=== PATIENT | female | born 1985 | race Two or more races ===

== ENCOUNTER 2020-06-05 16:16 | Inpatient (IN) | payer MEDICAID, OTHER ==
[~2020-06-05] VITALS: Ht 152.4 cm; Wt 78.1 kg
--- NOTE | 2020-06-05 17:16 | NUR ---
Pt to room from [facility], ambulatory with steady gait.
--- NOTE | 2020-06-05 17:23 | NUR ---
THIS IS A 35 YO F W/ C/O SOB AND COUGH X5 DAYS. PT DENIES MEDICAL HX. PT RESTING ON [employer] W/ CALL LIGHT IN REACH, CONNECTED TO MONITORING, VSS, NADN. AWAITING ED EVAL.
[2020-06-05] MEDS ORDERED: ALBUTEROL/IPRATROPIUM 2.5MG/0.5MG, 3 ML ONE (17:54)
[2020-06-05] MEDS ORDERED: ALBUTEROL/IPRATROPIUM 2.5MG/0.5MG, 3 ML NPPB ONE (18:00)
--- NOTE | 2020-06-05 18:00 | NUR ---
BREATHING TX STARTED.
[2020-06-05 18:18] LABS: BASOPHILS # (AUTO) 0.03 x10^3/uL (0-0.1); BASOPHILS % (AUTO) 1 % (0-1); EOSINOPHILS # (AUTO) 0.14 x10^3/uL (0-0.4); EOSINOPHILS % (AUTO) 2 % (1-7); LYMPHOCYTES # (AUTO) 2.02 x10^3/uL (1-3.4); LYMPHOCYTES % (AUTO) 28 % (22-44); MD NO; MEAN CORPUSCULAR HEMOGLOBIN 29.3 pg (27.0-34.8); MEAN CORPUSCULAR HGB CONC 33.5 g/dL (32.4-35.8); MEAN PLATELET VOLUME 6.9 fL (7.4-10.4); MONOCYTES # (AUTO) 0.67 x10^3/uL (0.2-0.8); MONOCYTES % (AUTO) 9 % (2-9); NEUTROPHILS # (AUTO) 4.44 x10^3/uL (1.8-6.8); NEUTROPHILS % (AUTO) 61 % (42-75); PLATELET COUNT 469 x10^3/uL (130-400); RED BLOOD COUNT 4.43 x10^6/uL (3.82-5.3); RED CELL DISTRIBUTION WIDTH 13.2 % (9.6-15.2)
[2020-06-05 18:25] LABS: ALANINE AMINOTRANSFERASE 29 U/L (12-78); ANION GAP 7 mmol/L (5-15); CALCIUM 9.1 mg/dL (8.5-10.1); CHLORIDE 106 mmol/L (98-107); CREATININE 0.72 mg/dL (0.55-1.02)
[2020-06-05 18:29] LABS: ALKALINE PHOSPHATASE 80 U/L (45-117); BILIRUBIN,TOTAL 0.3 mg/dL (0.2-1.0); TROPONIN I < 0.015 ng/mL (0.000-0.045)
--- NOTE | 2020-06-05 18:42 | NUR ---
ALL TESTS RESULTED. PT IS UP FOR RECHECK AT THIS TIME.
--- NOTE | 2020-06-05 18:50 | NUR ---
REPORT GIVEN TO ALISON GARRIDO.
[2020-06-05] MEDS ORDERED: CEFTRIAXONE PMX 1GM/50ML 50 ML ONE (19:52)
--- NOTE | 2020-06-05 19:59 | NUR ---
HOSPITAL BED REQ
[2020-06-05] MEDS ORDERED: AZITHROMYCIN 500 MG in SODIUM CHLORIDE 0.9% 250 ML IV ONE (20:00)
[2020-06-05] MEDS ORDERED: ALBUTEROL/IPRATROPIUM 2.5MG/0.5MG, 3 ML NPPB PRN (20:30)
[2020-06-05] MEDS ORDERED: HYDROcodone/APAP 5/325 TABLET PO PRN (20:30)
[2020-06-05] MEDS ORDERED: ACETAMINOPHEN 325 MG TABLET PO PRN (20:30)
[2020-06-05] MEDS ORDERED: TEMAZEPAM 15 MG CAPSULE PO PRN (20:30)
[2020-06-05] MEDS ORDERED: hydrALAzine 20 MG/ML, 1ML IVPush PRN (20:30)
[2020-06-05] MEDS ORDERED: DOCUSATE 100 MG CAPSULE PO PRN (20:30)
[2020-06-05] MEDS ORDERED: ONDANSETRON 2MG/ML, 2ML IVPush PRN (20:30)
[2020-06-05] MEDS ORDERED: METHOCARBAMOL 500 MG TABLET PO PRN (20:30)
[2020-06-05] MEDS ORDERED: BENZONATATE 100 MG CAPSULE PO PRN (20:30)
[2020-06-05] MEDS ORDERED: ENOXAPARIN 40 MG/0.4 ML SQ SCH (20:30)
[2020-06-05] MEDS ORDERED: GUAIFENESIN/DM 200-20MG, 10ML UDC PO PRN (20:30)
[2020-06-05] MEDS ORDERED: ASA/APAP/ CAFFEINE TABLET PO PRN (20:30)
[2020-06-05] MEDS ORDERED: LACTATED RINGERS 1,000 ML IV SCH (20:30)
[2020-06-05] MEDS ORDERED: morphine SULFATE 10 MG/ML, 1ML IVPush PRN (20:30)
[2020-06-05] MEDS: FAMOTIDINE 20 MG TABLET PO SCH (21:00)
[2020-06-05] MEDS ORDERED: CEFTRIAXONE PMX 1GM/50ML 50 ML IVPB ONE (21:00)
[2020-06-05] MEDS ORDERED: FAMOTIDINE 20 MG TABLET ONE (21:36)
[2020-06-05] MEDS ORDERED: ALBUTEROL-IPRATROPIUM MDI INH INH PRN (22:00)
[2020-06-06] MEDS ORDERED: COMBIVENT MC SCH (02:30)
[2020-06-06 02:32] VITALS: BP 122/83
[2020-06-06 05:39] LABS: BASOPHILS # (AUTO) 0.04 x10^3/uL (0-0.1); BASOPHILS % (AUTO) 0 % (0-1); EOSINOPHILS # (AUTO) 0.14 x10^3/uL (0-0.4); EOSINOPHILS % (AUTO) 2 % (1-7); LYMPHOCYTES # (AUTO) 2.32 x10^3/uL (1-3.4); LYMPHOCYTES % (AUTO) 26 % (22-44); MD NO; MEAN CORPUSCULAR HEMOGLOBIN 29.3 pg (27.0-34.8); MEAN CORPUSCULAR HGB CONC 33.3 g/dL (32.4-35.8); MEAN PLATELET VOLUME 6.9 fL (7.4-10.4); MONOCYTES # (AUTO) 0.71 x10^3/uL (0.2-0.8); MONOCYTES % (AUTO) 8 % (2-9); NEUTROPHILS % (AUTO) 64 % (42-75); PLATELET COUNT 438 x10^3/uL (130-400); RED BLOOD COUNT 3.86 x10^6/uL (3.82-5.3); RED CELL DISTRIBUTION WIDTH 13.6 % (9.6-15.2)
[2020-06-06 05:45] LABS: CHLORIDE 109 mmol/L (98-107)
[2020-06-06 05:49] LABS: ANION GAP 6 mmol/L (5-15); CALCIUM 8.6 mg/dL (8.5-10.1); CREATININE 0.68 mg/dL (0.55-1.02)
[2020-06-06] MEDS: FAMOTIDINE 20 MG TABLET PO SCH ×2 (07:35→20:12)
[2020-06-06 08:11] VITALS: BP 107/78
[2020-06-06 10:10] LABS: C-REACTIVE PROTEIN, QUANT 2.8 mg/dL (0.02-0.49)
[2020-06-06] MEDS: CHOLECALCIFEROL 1,000 UNIT TABLET PO SCH (10:11)
[2020-06-06] MEDS: methylPREDNISolone SOD SUCC 40 MG/ML IV SCH ×2 (10:11→20:07)
[2020-06-06] MEDS: ASCORBIC ACID 500 MG TABLET PO SCH ×3 (10:11→20:08)
[2020-06-06 12:42] VITALS: BP 109/76
[2020-06-06] MEDS ORDERED: ASCORBIC ACID 250 MG TAB ONE (16:08)
[2020-06-06] MEDS: ENOXAPARIN 80 MG/0.8 ML SQ SCH (16:34)
[2020-06-06] MEDS: AZITHROMYCIN 500 MG in SODIUM CHLORIDE 0.9% 250 ML IV SCH (20:08)
[2020-06-06] MEDS: MELATONIN 5 MG TABLET PO SCH (20:08)
[2020-06-06 20:19] VITALS: BP 112/73
[2020-06-06] MEDS ORDERED: CEFTRIAXONE PMX 1GM/50ML 50 ML IV SCH (20:30)
[2020-06-06] MEDS ORDERED: OMNIPAQUE 350 MG/ML, 100ML BOTTLE ONE (23:20)
[2020-06-07 00:48] VITALS: BP 134/86
[2020-06-07] MEDS: ENOXAPARIN 80 MG/0.8 ML SQ SCH ×2 (04:14→16:10)
[2020-06-07 07:25] VITALS: BP 118/70
[2020-06-07] MEDS: CHOLECALCIFEROL 1,000 UNIT TABLET PO SCH (10:09)
[2020-06-07] MEDS: FAMOTIDINE 20 MG TABLET PO SCH ×2 (10:09→20:27)
[2020-06-07] MEDS: ASCORBIC ACID 500 MG TABLET PO SCH ×3 (10:09→20:27)
[2020-06-07] MEDS: methylPREDNISolone SOD SUCC 40 MG/ML IV SCH ×2 (10:09→22:15)
[2020-06-07 14:46] VITALS: BP 110/71
[2020-06-07 19:15] VITALS: BP 116/75
[2020-06-07] MEDS: AZITHROMYCIN 500 MG in SODIUM CHLORIDE 0.9% 250 ML IV SCH (20:26)
[2020-06-07] MEDS: MELATONIN 5 MG TABLET PO SCH (20:27)
[2020-06-08 01:07] VITALS: BP 121/77
[2020-06-08] MEDS: ENOXAPARIN 80 MG/0.8 ML SQ SCH ×2 (04:28→16:09)
[2020-06-08] MEDS: ASCORBIC ACID 500 MG TABLET PO SCH ×3 (08:33→20:34)
[2020-06-08] MEDS: CHOLECALCIFEROL 1,000 UNIT TABLET PO SCH (08:33)
[2020-06-08] MEDS: FAMOTIDINE 20 MG TABLET PO SCH ×2 (08:33→20:34)
[2020-06-08 11:00] VITALS: BP 108/70
[2020-06-08] MEDS: methylPREDNISolone SOD SUCC 40 MG/ML IV SCH (11:15)
[2020-06-08 13:19] VITALS: BP 117/76
[2020-06-08] MEDS: CEFTRIAXONE PMX 1GM/50ML 50 ML IV SCH (17:45)
[2020-06-08] MEDS: DEXAMETHASONE 4 MG/ML, 1ML IVPush SCH (17:45)
[2020-06-08 19:10] VITALS: BP 124/74
[2020-06-08] MEDS: AZITHROMYCIN 500 MG in SODIUM CHLORIDE 0.9% 250 ML IV SCH (20:27)
[2020-06-08] MEDS: MELATONIN 5 MG TABLET PO SCH (20:34)
[2020-06-09 00:14] VITALS: BP 108/66
[2020-06-09 05:04] LABS: BASOPHILS # (AUTO) 0.03 x10^3/uL (0-0.1); BASOPHILS % (AUTO) 0 % (0-1); EOSINOPHILS # (AUTO) 0.05 x10^3/uL (0-0.4); EOSINOPHILS % (AUTO) 0 % (1-7); LYMPHOCYTES # (AUTO) 1.89 x10^3/uL (1-3.4); LYMPHOCYTES % (AUTO) 13 % (22-44); MD NO; MEAN CORPUSCULAR HEMOGLOBIN 29.2 pg (27.0-34.8); MEAN CORPUSCULAR HGB CONC 33.5 g/dL (32.4-35.8); MEAN PLATELET VOLUME 7.4 fL (7.4-10.4); MONOCYTES % (AUTO) 6 % (2-9); NEUTROPHILS % (AUTO) 81 % (42-75); PLATELET COUNT 596 x10^3/uL (130-400); RED BLOOD COUNT 4.36 x10^6/uL (3.82-5.3); RED CELL DISTRIBUTION WIDTH 13.9 % (9.6-15.2)
[2020-06-09] MEDS: DEXAMETHASONE 4 MG/ML, 1ML IVPush SCH ×2 (05:05→16:43)
[2020-06-09] MEDS: ENOXAPARIN 80 MG/0.8 ML SQ SCH ×2 (05:05→16:43)
[2020-06-09 05:19] LABS: ALBUMIN 3.1 g/dL (3.4-5.0); ANION GAP 7 mmol/L (5-15); CALCIUM 9.5 mg/dL (8.5-10.1); CHLORIDE 106 mmol/L (98-107)
[2020-06-09 05:22] LABS: ALANINE AMINOTRANSFERASE 42 U/L (12-78); ALKALINE PHOSPHATASE 75 U/L (45-117); BILIRUBIN,TOTAL 0.3 mg/dL (0.2-1.0); CREATININE 0.62 mg/dL (0.55-1.02); TOTAL PROTEIN 7.8 g/dL (6.4-8.2)
[2020-06-09 08:56] VITALS: BP 107/67
[2020-06-09] MEDS: CHOLECALCIFEROL 1,000 UNIT TABLET PO SCH (09:27)
[2020-06-09] MEDS: FAMOTIDINE 20 MG TABLET PO SCH ×2 (09:27→21:02)
[2020-06-09] MEDS: ASCORBIC ACID 500 MG TABLET PO SCH ×3 (09:27→21:02)
[2020-06-09 12:22] VITALS: BP 111/66
[2020-06-09] MEDS: CEFTRIAXONE PMX 1GM/50ML 50 ML IV SCH (16:43)
[2020-06-09 20:05] VITALS: BP 118/74
[2020-06-09] MEDS: MELATONIN 5 MG TABLET PO SCH (21:02)
[2020-06-09] MEDS: AZITHROMYCIN 500 MG in SODIUM CHLORIDE 0.9% 250 ML IV SCH (21:02)
[2020-06-10 00:05] VITALS: BP 106/66
[2020-06-10] MEDS: DEXAMETHASONE 4 MG/ML, 1ML IVPush SCH ×2 (05:13→16:28)
[2020-06-10] MEDS: ENOXAPARIN 80 MG/0.8 ML SQ SCH ×2 (05:13→16:28)
[2020-06-10 08:39] VITALS: BP 103/64
[2020-06-10] MEDS: FAMOTIDINE 20 MG TABLET PO SCH ×2 (09:01→21:05)
[2020-06-10] MEDS: CHOLECALCIFEROL 1,000 UNIT TABLET PO SCH (09:01)
[2020-06-10] MEDS: ASCORBIC ACID 500 MG TABLET PO SCH ×3 (09:01→21:05)
[2020-06-10 12:43] VITALS: BP 111/69
[2020-06-10] MEDS: CEFTRIAXONE PMX 1GM/50ML 50 ML IV SCH (16:28)
[2020-06-10 21:02] VITALS: BP 121/79
[2020-06-10] MEDS: AZITHROMYCIN 500 MG in SODIUM CHLORIDE 0.9% 250 ML IV SCH (21:05)
[2020-06-10] MEDS: MELATONIN 5 MG TABLET PO SCH (21:05)
[2020-06-11 00:34] VITALS: BP 109/67
[2020-06-11] MEDS: DEXAMETHASONE 4 MG/ML, 1ML IVPush SCH (05:41)
[2020-06-11] MEDS: ENOXAPARIN 80 MG/0.8 ML SQ SCH (05:45)
[2020-06-11 09:00] VITALS: BP 102/65
[2020-06-11] MEDS: FAMOTIDINE 20 MG TABLET PO SCH (09:02)
[2020-06-11] MEDS: ASCORBIC ACID 500 MG TABLET PO SCH ×2 (09:02→16:00)
[2020-06-11] MEDS: CHOLECALCIFEROL 1,000 UNIT TABLET PO SCH (09:02)
[2020-06-11] MEDS ORDERED: ZINC220C7 PO (13:02)
[2020-06-11] MEDS ORDERED: ASCO100019 PO (13:02)
[2020-06-11] MEDS ORDERED: CHOL10003 PO (13:02)
[2020-06-11] MEDS ORDERED: GUAI5SYR PO (13:02)
[2020-06-11] MEDS ORDERED: FAMO20TA7 PO (13:02)
[2020-06-11] MEDS ORDERED: CEFD300C37 PO (13:02)
[2020-06-11 13:35] VITALS: BP 112/69
== END 2020-06-11 16:50 | disposition home or self-care (01) | DRG 177 ==
LOC: ED 19:05 → EDIP 19:14 → ED 20:30 → 4NW 06-06 02:18
PROVIDERS: ADMIT Internal Medicine; ATTEND Hospitalist
DX: U07.1 COVID-19 (principal); J12.89 Other viral pneumonia; J96.01 Acute respiratory failure with hypoxia; Z83.3 Family history of diabetes mellitus; E86.0 Dehydration; R00.0 Tachycardia, unspecified; E88.09 Other disorders of plasma-protein metabolism, not elsewhere classified; E66.9 Obesity, unspecified; Z68.33 Body mass index [BMI] 33.0-33.9, adult
CPT/HCPCS: 36415; 71045; 71275; 80048; 80053; 83036; 83605; 83615; 83880; 84145; 84484; 85025; 85379; 86140; 87040; 87635; 93005; 96374; 99285; G0378; J0456; J0696; J1100; J1650; Q9967; J2920; J7050; J7120